=== PATIENT | male | born 2005 | race Caucasian/White ===

== ENCOUNTER 2023-04-17 21:51 | Emergency (ER) | payer MEDICAID ==
[~2023-04-17] VITALS: Ht 177.8 cm; Wt 59.1 kg
[2023-04-17] MEDS ORDERED: ondansetron 4mg rapidly disintigrating tab PO ONE (22:35)
[2023-04-18] MEDS ORDERED: normal saline 1000ml 1,000 ML IVB ONE (00:40)
[2023-04-18 00:51] LABS: BILIRUBIN,URINE NEGATIVE (Neg); CLARITY,URINE SLIGHTLY CLOUDY (Clear); COLOR,URINE YELLOW (Yellow); GLUCOSE, URINE NEGATIVE (Neg); KETONES,URINE NEGATIVE (Neg); LEUKOCYTE ESTERASE ,URINE NEGATIVE (Neg); NITRITES, URINE NEGATIVE (Neg); OCCULT BLOOD,URINE NEGATIVE (Neg); PROTEIN,URINE 30 mg/dl (Neg)
[2023-04-18] MEDS ORDERED: ondansetron/PF 4mg/2ml inj IV ONE (00:55)
[2023-04-18] MEDS ORDERED: morphine 4 MG/ML inj SYRINge IV ONE ×2 (00:55→04:45)
[2023-04-18 01:13] LABS: UA COLLECTION TYPE CLN CATCH MIDSTREAM
[2023-04-18 01:15] LABS: SQUAMOUS EPITHELIAL CELL,UR FEW /LPF (FEW)
[2023-04-18 01:17] LABS: BACTERIA,URINE 2+ /HPF (Neg); MUCUS STRANDS MANY /LPF (Neg); RBC,URINE NONE SEEN /HPF (0-2); RENAL CELLS, URINE FEW /HPF; WBC,URINE 0-4 /HPF (0-4)
--- NOTE | 2023-04-18 01:21 | NUR ---
ED BED 1--PT REQUESTING HOME DES BRAVO [id number] PAGE SENT TO DR BENNETT
[2023-04-18] MEDS ORDERED: morphine 2 MG/ML inj. syringe IV ONE (01:30)
[2023-04-18 01:41] LABS: ALANINE AMINOTRANSFERASE 30 U/L (12-78); ALBUMIN 4.5 G/DL (3.4-5.0); ALBUMIN/GLOBULIN RATIO 1.2 (1.1-1.5); ALKALINE PHOSPHATASE 94 IU/L (20-180); ANION GAP 14 (8-16); ASPARTATE AMINO TRANSFERASE 21 U/L (10-37); BLOOD UREA NITROGEN 15 MG/DL (7-18); BUN/CREATININE RATIO 15.2 (10.0-20.0); CALCIUM 9.4 MG/DL (8.5-10.1); CHLORIDE 100 MMOL/L (99-107); CREATININE 0.99 MG/DL (0.60-1.10); GLUCOSE 117 MG/DL (70-104); LIPASE 52 U/L (73-393); POTASSIUM 3.1 MMOL/L (3.5-5.1); SODIUM 140 MMOL/L (135-145); TOTAL CARBON DIOXIDE 26.4 MMOL/L (24-32); TOTAL PROTEIN 8.2 G/DL (6.4-8.2); eCRCL 99 ML/MIN; eGFR > 90 ML/MIN
[2023-04-18] MEDS ORDERED: iohexol 300mg/ml 100ml inj. ONE (01:47)
[2023-04-18] MEDS ORDERED: normal saline 1000ml 1,000 ML IV SCH (01:55)
[2023-04-18 02:13] LABS: BASOPHILS # (AUTO) 0.1 X10'3 (0-0.2); BASOPHILS % (AUTO) 1.1 % (0-1); EOSINOPHILS % (AUTO) 0 % (0-6); HEMATOCRIT 52.3 % (42.0-52.0); LYMPHOCYTES # (AUTO) 1.2 X10'3 (1.1-4.8); LYMPHOCYTES % (AUTO) 18.3 % (21-51); MEAN CORPUSCULAR HEMOGLOBIN 31.5 PG (27.0-31.0); MEAN CORPUSCULAR VOLUME 89.8 FL (78-98); MEAN PLATELET VOLUME 9.8 FL (7.4-10.4); MONOCYTES # (AUTO) 0.9 X10'3 (0-0.9); MONOCYTES % (AUTO) 14.5 % (2-12); NEUTROPHILS # (AUTO) 4.2 X10'3 (1.8-7.7); NEUTROPHILS % (AUTO) 66.1 % (42-75); PLATELET COUNT 184 X10'3 (140-440); RED BLOOD COUNT 5.82 X10'6 (4.70-6.10); RED CELL DISTRIBUTION WIDTH 13.2 % (11.5-14.5); WHITE BLOOD COUNT 6.4 X10'3 (4.5-11.0)
[2023-04-18 02:20] LABS: HEMOGLOBIN 18.3 g/dl (14.0-17.9)
[2023-04-18] MEDS ORDERED: MAG355OR18 PO (05:06)
[2023-04-18] MEDS ORDERED: FAMO-128 PO (05:06)
[2023-04-18] MEDS ORDERED: ONDA4TAB12 PO (05:06)
[2023-04-18 05:14] VITALS: BP 110/68; PULSE 67; RESP 16; TEMP 98.3; O2SAT 99
== END 2023-04-18 05:15 | disposition home or self-care (01) ==
LOC: ER 21:52
DX: R10.84 Generalized abdominal pain (principal); R11.2 Nausea with vomiting, unspecified; R19.7 Diarrhea, unspecified; Z79.899 Other long term (current) drug therapy
CPT/HCPCS: 71045; 74019; 74177; 80053; 81001; 83690; 85025; 87077; 87088; 96361; 96374; 96375; 96376; 99285; J2270; J2405; J3490; J7030; Q9967

== ENCOUNTER 2024-09-30 02:52 | Emergency (ER) | payer MEDICAID ==
[~2024-09-30] VITALS: Ht 177.8 cm; Wt 75.0 kg
[~2024-09-30 02:52] MED LIST: FAMO-128 PO; ONDA-243 PO
[2024-09-30] MEDS: morphine 4 MG/ML inj SYRINge IV ONE (03:22)
[2024-09-30] MEDS: ondansetron/PF 4mg/2ml inj IV ONE (03:23)
[2024-09-30 03:25] LABS: BASOPHILS % (AUTO) 0.3 % (0-1); EOSINOPHILS % (AUTO) 0.1 % (0-6); HEMATOCRIT 46.9 % (42.0-52.0); HEMOGLOBIN 16.6 g/dl (14.0-17.9); LYMPHOCYTES # (AUTO) 0.5 X10'3 (1.1-4.8); LYMPHOCYTES % (AUTO) 8.8 % (21-51); MEAN CORPUSCULAR HEMOGLOBIN 31.6 PG (27.0-31.0); MEAN CORPUSCULAR HGB CONC 35.4 g/dL (33.0-36.5); MEAN CORPUSCULAR VOLUME 89.2 FL (78-98); MEAN PLATELET VOLUME 8.1 FL (7.4-10.4); MONOCYTES # (AUTO) 0.9 X10'3 (0-0.9); MONOCYTES % (AUTO) 15.8 % (2-12); NEUTROPHILS # (AUTO) 4.4 X10'3 (1.8-7.7); PLATELET COUNT 175 X10'3 (140-440); RED BLOOD COUNT 5.26 X10'6 (4.70-6.10); RED CELL DISTRIBUTION WIDTH 13.2 % (11.5-14.5); WHITE BLOOD COUNT 5.9 X10'3 (4.5-11.0)
[2024-09-30 03:37] LABS: ALANINE AMINOTRANSFERASE 54 U/L (12-78); ALBUMIN 4.6 G/DL (3.4-5.0); ALBUMIN/GLOBULIN RATIO 1.2 (1.1-1.5); ALKALINE PHOSPHATASE 144 IU/L (46-116); ANION GAP 14 (8-16); ASPARTATE AMINO TRANSFERASE 26 U/L (10-37); BILIRUBIN,TOTAL 1.1 MG/DL (0.1-1.0); BLOOD UREA NITROGEN 18 MG/DL (7-18); BUN/CREATININE RATIO 16.1 (10.0-20.0); CALCIUM 9.3 MG/DL (8.5-10.1); CHLORIDE 99 MMOL/L (99-107); CREATININE 1.12 MG/DL (0.60-1.10); GLUCOSE 134 MG/DL (70-104); LIPASE 32 U/L (16-77); POTASSIUM 3.4 MMOL/L (3.5-5.1); SODIUM 136 MMOL/L (135-145); TOTAL CARBON DIOXIDE 22.7 MMOL/L (24-32); TOTAL PROTEIN 8.5 G/DL (6.4-8.2); eCRCL 108 ML/MIN; eGFR 83 ML/MIN
[2024-09-30 03:54] LABS: TOTAL CELLS COUNTED 100
[2024-09-30] MEDS: acetaminophen 1,000mg/100ml IV 100 ML IV SCH (04:28)
[2024-09-30 05:08] LABS: BILIRUBIN,URINE NEGATIVE (Neg); CLARITY,URINE CLEAR (Clear); COLOR,URINE YELLOW (Yellow); GLUCOSE, URINE NEGATIVE (Neg); KETONES,URINE >=80 mg/dl (Neg); LEUKOCYTE ESTERASE ,URINE NEGATIVE (Neg); NITRITES, URINE NEGATIVE (Neg); OCCULT BLOOD,URINE NEGATIVE (Neg); PH,URINE 7.5 (4.8-8.0); PROTEIN,URINE 30 mg/dl (Neg)
[2024-09-30] MEDS: ketorolac trometh 15mg/ml vial 15 MG/ML ML IV ONE (05:08)
[2024-09-30 05:10] LABS: UA COLLECTION TYPE CLN CATCH MIDSTREAM
[2024-09-30 05:11] LABS: BACTERIA,URINE FEW /HPF (Neg); MUCUS STRANDS FEW /LPF (Neg); RBC,URINE NONE SEEN /HPF (0-2); SQUAMOUS EPITHELIAL CELL,UR FEW /LPF (FEW)
[2024-09-30 05:12] LABS: WBC,URINE 0-4 /HPF (0-4)
[2024-09-30 05:27] LABS: URINE AMPHETAMINE SCREEN NEGATIVE (Neg); URINE BARBITUATE SCREEN NEGATIVE (Neg); URINE BENZODIAZEPINES SCREEN NEGATIVE (Neg); URINE CANNABINOID SCREEN NEGATIVE (Neg); URINE COCAINE SCREEN NEGATIVE (Neg); URINE METHADONE SCREEN NEGATIVE (Neg); URINE OPIATE SCREEN POSITIVE (Neg); URINE PHENCYCLIDINE SCREEN NEGATIVE (Neg)
[2024-09-30] MEDS ORDERED: ONDA-243 PO (05:32)
[2024-09-30] MEDS: normal saline 1000ML IV soln IVB ONE (05:35)
[2024-09-30 06:02] VITALS: BP 114/70; PULSE 98; RESP 12; TEMP 98.8; O2SAT 98
== END 2024-09-30 06:06 | disposition home or self-care (01) ==
LOC: ER 02:53
DX: J10.1 Influenza due to other identified influenza virus with other respiratory manifestations (principal); R11.10 Vomiting, unspecified; E86.0 Dehydration; Z79.899 Other long term (current) drug therapy; Z20.822 Contact with and (suspected) exposure to COVID-19
CPT/HCPCS: 36415; 74176; 80053; 80305; 81001; 83690; 85007; 85025; 87502; 87503; 87811; 96365; 96375; 99285; J0131; J1885; J2270; J2405; J7030

== ENCOUNTER 2025-03-26 02:35 | Emergency (ER) | payer MEDICAID ==
[~2025-03-26] VITALS: Ht 177.8 cm; Wt 66.0 kg
[2025-03-26 03:14] LABS: MEAN PLATELET VOLUME 8.7 FL (7.4-10.4); RED CELL DISTRIBUTION WIDTH 13.1 % (11.5-14.5)
[2025-03-26 03:28] LABS: LEUKOCYTE ESTERASE ,URINE NEGATIVE (Neg); NITRITES, URINE NEGATIVE (Neg); OCCULT BLOOD,URINE NEGATIVE (Neg)
[2025-03-26 03:31] LABS: UA COLLECTION TYPE NON-SPECIFIED
[2025-03-26 03:38] LABS: MUCUS STRANDS MANY /LPF (Neg); SQUAMOUS EPITHELIAL CELL,UR NONE SEEN /LPF (FEW)
[2025-03-26 03:53] LABS: CREATININE 0.79 MG/DL (0.60-1.10); TOTAL CARBON DIOXIDE 24.0 MMOL/L (24-32); eCRCL 138 ML/MIN; eGFR > 90 ML/MIN
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
[2025-03-26] MEDS: metoclopramide 5 mg/ml inj IV ONE (04:58)
[2025-03-26 04:59] LABS: ETHANOL < 10 MG/DL (<10)
[2025-03-26] MEDS: normal saline 1000ML IV soln IVB ONE (05:02)
[2025-03-26] MEDS: ondansetron/PF 4mg/2ml inj IV ONE (05:02)
--- NOTE | 2025-03-26 05:09 | RADIOLOGY REPORT ---
CHEST RADIOGRAPH Indication: upright RLQ pain Technique: 2 views of the abdomen were obtained Comparison: CT 09/30/2024 IMPRESSION: Bowel-gas pattern is nonobstructed. Moderate intracolonic stool. No pathologic air-fluid levels. No evidence of free air.
[2025-03-26 06:40] VITALS: BP 121/61; PULSE 99; RESP 16; TEMP 98.9; O2SAT 98
[2025-03-26 15:59] LABS: URINE AMPHETAMINE SCREEN NEGATIVE (Neg); URINE BARBITUATE SCREEN NEGATIVE (Neg); URINE BENZODIAZEPINES SCREEN NEGATIVE (Neg); URINE COCAINE SCREEN NEGATIVE (Neg); URINE METHADONE SCREEN NEGATIVE (Neg)
[2025-03-26 16:00] LABS: URINE CANNABINOID SCREEN NEGATIVE (Neg); URINE OPIATE SCREEN NEGATIVE (Neg); URINE PHENCYCLIDINE SCREEN NEGATIVE (Neg)
== END 2025-03-26 06:38 | disposition home or self-care (01) ==
LOC: ER 02:36
DX: R10.31 Right lower quadrant pain (principal); R11.10 Vomiting, unspecified; R19.7 Diarrhea, unspecified; Z79.899 Other long term (current) drug therapy
CPT/HCPCS: 36415; 74018; 80053; 80305; 80320; 81001; 83690; 83735; 85025; 96361; 96374; 96375; 99285; J2270; J2405; J2765; J7030